=== PATIENT | female | born 1960 | race Caucasian/White ===

== ENCOUNTER → 2017-10-30 | Outpatient (CLI) | payer MEDICARE, OTHER ==
--- NOTE | 2017-10-30 13:32 | MM ---
Reason for exam: screening (asymptomatic). Baseline mammogram. History: Patient is postmenopausal and had first child at age 31. Physical Findings: Nurse did not find any significant physical abnormalities on exam. MG 3D Screening Mammo W/Cad Bilateral CC and MLO view(s) were taken. The breast tissue is heterogeneously dense. This may lower the sensitivity of mammography. Finding: There are indeterminate grouped/clustered calcifications in the middle, central position of the right breast. These results were verbally communicated with the patient and result sheet given to the patient on 10/30/17. ASSESSMENT: Incomplete: need additional imaging evaluation, BI-RAD 0 RECOMMENDATION: Special view mammogram of the right breast. If lesion persists on supplemental views, image directed ultrasound is recommended. [facility] will attempt to contact patient to return for supplemental views and ultrasound if indicated.
--- NOTE | 2017-10-30 13:34 | MM ---
Reason for exam: additional evaluation requested from abnormal screening. History: Patient is postmenopausal and had first child at age 31. Physical Findings: Breast exam preformed at baseline screening. MG 3D Work Up W/Cad RT CC with magnification, ML with magnification, and ML view(s) were taken of the right breast. Finding: There are intermediate concern, suspicious grouped/clustered calcifications in the slight upper outer quadrant, middle position of the right breast. These results were verbally communicated with the patient and result sheet given to the patient on 10/30/17. ASSESSMENT: Suspicious, BI-RAD 4 RECOMMENDATION: Surgical consultation and stereotactic core biopsy of the right breast. (if medically possible otherwise consider needle localization with surgical excision) Called Dr. Mariano with mammographic findings and has scheduled an appointment for the patient for 11/11/17 at 9:[address] Putnam. PRELIMINARY REPORT CALLED AND FAXED TO DR. PUTNAM ON 10/30/17.
== END | disposition home or self-care (01) ==
LOC: RADMAMWWP 10:19
PROVIDERS: ATTEND General Practice
DX: Z12.31 Encounter for screening mammogram for malignant neoplasm of breast (principal); R92.8 Other abnormal and inconclusive findings on diagnostic imaging of breast; G43.909 Migraine, unspecified, not intractable, without status migrainosus; J44.9 Chronic obstructive pulmonary disease, unspecified; F41.9 Anxiety disorder, unspecified; K59.00 Constipation, unspecified; Z00.00 Encounter for general adult medical examination without abnormal findings; Z13.89 Encounter for screening for other disorder; Z12.11 Encounter for screening for malignant neoplasm of colon
CPT/HCPCS: 77067; 77065; 77063; G0279

== ENCOUNTER → 2017-12-22 | Outpatient (CLI) | payer MEDICARE, OTHER ==
--- NOTE | 2017-12-22 11:19 | MR ---
EXAMINATION TYPE: MR brain wo con DATE OF EXAM: 12/22/2017 COMPARISON: NONE HISTORY: Migraines CONTRAST: Performed utilizing 0 mL intravenous Gadavist gadolinium contrast. TECHNIQUE: Multiplanar, multiecho imaging on a 3.0 Alicja magnet is performed through the brain. Stud y is performed within 24 hours of arrival to the hospital. The craniovertebral junction is normal. The pituitary is normal. Diffusion-weighted imaging is performed. No abnormal hyperintensity is present to suggest an acute i ntracranial infarct or acute ischemic change. Signal through the brain is normal. No suspicious changes typically associated with migraine headache s is identified Ventricles and sulci are appropriate for the patient age. Small bilateral air-fluid levels are present within the maxillary sinuses. Correlate for acute sinusi tis. IMPRESSIONS: 1. No acute intracranial process. 2. Bilateral maxillary sinusitis
== END | disposition home or self-care (01) ==
LOC: RADMRIMAIN 09:19
PROVIDERS: ATTEND Psychiatry & Neurology Neurology
DX: G43.709 Chronic migraine without aura, not intractable, without status migrainosus (principal)
CPT/HCPCS: 70551

== ENCOUNTER → 2017-12-26 | Day surgery (SDC) | payer MEDICARE, OTHER ==
[2017-12-19 15:25] VITALS: BMI 24.5
[~2017-12-26] MED LIST: DEXAMETHASONE SOD PHOSPHATE 10 MG/ML 1 ML VIAL IV ONE; HEPARIN SODIUM,PORCINE 5,000 UNIT/ML 1 ML VIAL SQ ONE; LACTATED RINGERS 1,000 ML IV SCH; MIDAZOLAM 2 MG/2 ML VIAL IV PRN; ONDANSETRON 4 MG/2 ML VIAL IVP ONE; Pre Op ABX Message 1 EACH MISC MISCELLANE ONE; SCOPOLAMINE 1.5MG/72HR PATCH TRANSDERM ONE; fentaNYL (PF) 50 MCG/ML 2 ML AMP IV PRN
== END ==
LOC: OR 06:44
PROVIDERS: ATTEND Surgery
DX: R92.8 Other abnormal and inconclusive findings on diagnostic imaging of breast (principal); Z53.9 Procedure and treatment not carried out, unspecified reason

== ENCOUNTER 2018-03-18 06:18 | Day surgery (SDC) | payer MEDICARE, OTHER ==
[2018-03-06 15:45] VITALS: BMI 23.2
--- NOTE | 2018-03-17 17:03 | P.GSHP ---
History of Present Illness H&P Date: 03/17/18 Chief Complaint: Abnormal right mammogram Patient on our service. She was previously scheduled for right wire localization biopsy in December. Apparently she came to the hospital that day after eating food for breakfast and her surgery was canceled. The patient has a legal guardian as she is learning disabled. She had an area of suspicious calcifications right breast recently. She is unable to have a stereotactic core biopsy because of positioning issues. She is being scheduled for wire localization biopsy to evaluate for possible malignancy. No new changes since recent H&P in December. Past Medical History Past Medical History: Blood Disorder, COPD, Fibromyalgia, GERD/Reflux, Musculoskeletal Disorder, Syncope Additional Past Medical History / Comment(s): HX Anemia. FX ILIAC WING; RT SHOULDER. CHRONIC DELUSIONAL DISORDER /ANXIETY, GETS MONTHLY INJECTION RX AT [facility]. CHRONIC PAIN SYNDROME, DUODENAL/AND SMALL GASTRIC ULCERS, CHRONIC CONSTIPATION. HX ETOH ABUSE. MIGRAINES. CURRENT ABN MAMMOGRAM RT BREAST. History of Any Multi-Drug Resistant Organisms: None Reported Past Surgical History: Bowel Resection, Orthopedic Surgery Additional Past Surgical History / Comment(s): Bowel surgry, EGD, LT OOPHERECTOMY PER 2006 HX, RT SHOULDER SX, COLONOSCOPY Past Anesthesia/Blood Transfusion Reactions: No Reported Reaction Additional Past Anesthesia/Blood Transfusion Reaction / Comment(s): Anesthesia - pt states when she had abdominal surgery she was paralyzed from the anesthesia. was not able to walk for a month or 2 per pt. -UNCONFIRMED BY CURRENT CAREGIVER Smoking Status: Current every day smoker - Past Family History Father Family Medical History: Myocardial Infarction ([place]) Mother History Unknown: Yes Family Medical History: Cancer Additional Family Medical History / Comment(s): mom of cancer that was from her head to her toe. Medications and Allergies Home Medications Medication Instructions Recorded Confirmed Type Thiamine [Vitamin B-1] 100 mg PO QAM 11/30/15 03/06/18 History Folic Acid 1 mg PO QAM 01/08/16 03/06/18 History Acetaminophen Tab [Tylenol Tab] 500 mg PO TID 12/19/17 03/06/18 History Albuterol Inhaler [Ventolin Hfa 1 - 2 puff INHALATION QID PRN 12/19/17 03/06/18 History Inhaler] Aspirin [Children's Aspirin] 81 mg PO DAILY 12/19/17 03/06/18 History Butalbital/Aspirin/Caffeine 1 tab PO Q6HR 12/19/17 03/12/18 History [Fiorinal 50-325-40 MG] Docusate Sodium [Dok] 100 mg PO DAILY 12/19/17 03/06/18 History FLUoxetine HCL [FLUoxetine DR] 90 mg PO MO 12/19/17 03/06/18 History Ferrous Sulfate [Feosol] 325 mg PO DAILY 12/19/17 03/06/18 History Melatonin 5 mg PO HS 12/19/17 03/06/18 History Mirtazapine [Remeron] 45 mg PO HS 12/19/17 03/06/18 History Omeprazole [PriLOSEC] 20 mg PO AC-BID 12/19/17 03/06/18 History Pregabalin [Lyrica] 50 mg PO TID 12/19/17 03/06/18 History traZODone HCL 50 mg PO HS 12/19/17 03/06/18 History Ergocalciferol [Vitamin D2] 50,000 unit PO Q14D 03/06/18 03/06/18 History Ibuprofen [Motrin Ib] 400 mg PO TID 03/06/18 03/11/18 History Magnesium Hydroxide [Milk of 10 ml PO DAILY PRN 03/06/18 03/06/18 History Magnesia] hydrOXYzine PAMOATE [Vistaril] 25 mg PO TID 03/06/18 03/06/18 History Butalb/Acetaminophen/Caffeine 1 cap PO Q6H 03/11/18 03/11/18 History [Fioricet 50-300-40 mg Capsule] Allergies Allergy/AdvReac Type Severity Reaction Status Date / Time bacitracin Allergy Unknown Verified 03/06/18 14:51 [From Neosporin ([id number])] bacitracin zinc Allergy Unknown Verified 03/06/18 14:51 [From Neosporin ([id number])] neomycin sulfate Allergy Unknown Verified 03/06/18 14:51 [From Neosporin ([id number])] petrolatum,white Allergy Unknown Verified 03/06/18 15:08 [From Vaseline] polymyxin B Allergy Unknown Verified 03/06/18 14:51 [From Neosporin ([id number])] Surgical - Exam Physical exam: General: Well-developed, well-nourished HEENT: Normocephalic, sclerae nonicteric Right breast: No masses, no adenopathy Left breast: No masses, no adenopathy Abdomen: Nontender, nondistended Extremities: No edema Neuro: Alert and oriented Assessment and Plan (1) Abnormal mammogram Narrative/Plan: Will proceed with right breast wire localization biopsy tomorrow. Risks of bleeding, infection, potential need for additional surgery were reviewed. They understand and wish to proceed. Status: Acute Code(s): R92.8 - OTH ABN AND INCONCLUSIVE FINDINGS ON DX IMAGING OF BREAST SNOMED Code(s): 222092537
[~2018-03-18 06:18] MED LIST changes: +HYDROmorphone 0.5 MG/0.5 ML SYRINGE IVP PRN; -LACTATED RINGERS 1,000 ML IV SCH; -SCOPOLAMINE 1.5MG/72HR PATCH TRANSDERM ONE; -fentaNYL (PF) 50 MCG/ML 2 ML AMP IV PRN
[2018-03-18] MEDS: LACTATED RINGERS 1,000 ML IV SCH ×2 (07:02→08:55)
[2018-03-18] MEDS ORDERED: ALPRAZolam 0.5 MG TAB PO ONE (07:14)
[2018-03-18] MEDS ORDERED: LIDOCAINE 1% INJ 10MG/ML (20 ML MDV) SQ ONE (07:46)
[2018-03-18] MEDS ORDERED: SODIUM BICARB 4% 5 ML VIAL (0.48 MEQ/ML) MISCELLANE ONE (07:46)
[2018-03-18] MEDS ORDERED: ePHEDrine SULFATE/0.9% NACL/PF 50 MG/5 ML SYRINGE IV ONE (08:55)
[2018-03-18] MEDS ORDERED: HYDROmorphone (PF) 1 MG/ML ONE (08:55)
[2018-03-18] MEDS ORDERED: MIDAZOLAM 2 MG/2 ML VIAL ONE (08:55)
[2018-03-18] MEDS ORDERED: fentaNYL (PF) 50 MCG/ML 2 ML AMP ONE (08:55)
[2018-03-18] MEDS ORDERED: SUCCINYLCHOLINE CHLORIDE 100 MG/5 ML SYR IV ONE (08:55)
[2018-03-18] MEDS ORDERED: LIDOCAINE 1% INJ 10MG/ML (20 ML MDV) ONE (08:55)
[2018-03-18] MEDS ORDERED: PROPOFOL 10 MG/ML 20 ML VIAL IV ONE (08:55)
[2018-03-18] MEDS ORDERED: BUPIVACAIN-EPI 0.5%-1:200,000 30 ML VIAL SQ ONE (09:28)
[2018-03-18] MEDS ORDERED: HYDROcodone/APAP 5-325MG 1 EACH TAB PO PRN (09:35)
[2018-03-18] MEDS ORDERED: NALOXONE 0.4 MG/ML 1 ML VIAL IV PRN (09:35)
--- NOTE | 2018-03-18 09:37 | P.OP ---
Date of Procedure: 03/18/18 Procedure(s) Performed: PREOPERATIVE DIAGNOSIS: Abnormal right mammogram POSTOPERATIVE DIAGNOSIS: Same PROCEDURE: Right Breast wire localization biopsy SURGEON: [place] EBL: Minimal ANESTHESIA: General COMPLICATIONS: None OPERATIVE PROCEDURE: Patient was placed on the operating room table in the supine position. The breast was prepped and draped in usual sterile fashion. A curvilinear incision was made adjacent to the wire entrance site. I followed the wire down into the breast tissue. An adequate biopsy took place around the mid aspect of the wire. The specimen was sent to radiology for specimen x-ray. The subcutaneous tissues were closed using 3-0 Vicryl sutures. The skin was closed using a running 4-0 Monocryl stitch. Dermabond was then applied. DISPOSITION: Stable to recovery room
--- NOTE | 2018-03-18 09:51 | MM ---
EXAMINATION TYPE: MG pre op needle loc RT, MG surgical specimen RT DATE OF EXAM: 03/18/2018 COMPARISON: Prior mammogram October 30, 2017 and older studies CLINICAL HISTORY: Abnormal screening mammogram TECHNIQUE: Needle localization with wire placement and surgical excision of area of concern in the right breast. FINDINGS: The procedure of needle localization with wire placement and than surgical excision was explained to the patient. Benefits, alternatives, and risks were discussed. An informed consent was then obtained. Stereotactic guided core biopsy could not be performed due to recent shoulder surgery The shortest pathway for procedure was chosen. Shortest pathway was lateral approach. The overlying skin was prepped and draped in usual sterile fashion. Lidocaine buffered with bicarbonate was used as anesthetic into the skin and subcutaneous tissue up to the level of area of concern. A 7 cm needle was used. It was placed via a lateral approach under mammographic guidance. Subsequent 90 degrees mammogram show the needle to be in satisfactory position relative to the targeted area. At this point, wire was placed and the needle was withdrawn. The wire was fixed to patient's skin. Images were marked for surgeon. The patient tolerated the procedure well without any immediate complication. The patient was kept in the radiology department for short stay after the procedure and then taken to surgery for surgical excision. Targeted calcifications and wire are identified in specimen mammogram. The patient was kept in hospital for short stay after the procedure and then discharged home in stable condition. IMPRESSION: Successful, uncomplicated needle localization with wire placement and surgical excision of suspicious group of calcifications in the right breast , full pathology results to follow. Intermediate index of suspicion noted at time of procedure. Pathology Results: Benign RIGHT BREAST, STEREOTACTIC BREAST BIOPSY: Fibrocystic changes with fibroadenomatous and metaplastic changes. Intraductal mineralizations are noted in blocks A3 and A5. Appropriately controlled immunohistochemical studies for Cytokeratin 5/6, E- Cadherin, and Calponin are negative for lobular neoplasia. Recommendation Follow up mammogram of the right breast in 6 months. LEO
[2018-03-18 09:59] VITALS: TEMP 97.1
[2018-03-18 10:19] VITALS: RESP 16
[2018-03-18 11:01] VITALS: BP 143/83; PULSE 64
== END 2018-03-18 11:28 | disposition home or self-care (01) ==
LOC: OR 06:18
PROVIDERS: ATTEND Surgery
DX: D24.1 Benign neoplasm of right breast (principal); R92.1 Mammographic calcification found on diagnostic imaging of breast; J44.9 Chronic obstructive pulmonary disease, unspecified; M79.7 Fibromyalgia; K21.9 Gastro-esophageal reflux disease without esophagitis; G89.4 Chronic pain syndrome; F22 Delusional disorders; F41.9 Anxiety disorder, unspecified; Z79.82 Long term (current) use of aspirin; Z79.1 Long term (current) use of non-steroidal anti-inflammatories (NSAID); Z79.899 Other long term (current) drug therapy; Z88.1 Allergy status to other antibiotic agents; F17.200 Nicotine dependence, unspecified, uncomplicated
CPT/HCPCS: 19125; 88342; 88307; 88341; 76098; 19281; J2250; J1644; J1100; J2405; J2001; J3010; J1170; J0330; J2704

== ENCOUNTER → 2018-09-21 | Outpatient (CLI) | payer MEDICARE, OTHER ==
--- NOTE | 2018-10-01 10:22 | MM ---
Reason for exam: follow-up at short interval from prior study. Last mammogram was performed 11 months ago. History: Patient is postmenopausal and had first child at age 31. Benign MG pre op needle loc RT of the right breast, March 18, 2018. Physical Findings: Nurse did not find any significant physical abnormalities on exam. MG 3D Diag Mammo W/Cad RT CC and MLO view(s) were taken of the right breast. Prior study comparison: October 30, 2017, right breast MG 3d work up w/cad RT. October 30, 2017, bilateral MG 3d screening mammo w/cad. There are scattered fibroglandular densities. No residual calcifications or other discrete abnormalities seen. These results were verbally communicated with the patient and result sheet given to the patient on 09/21/18. ASSESSMENT: Probably benign, BI-RAD 3 RECOMMENDATION: Follow-up diagnostic mammogram of both breasts in 1 month. Back on schedule for October 2018.
== END | disposition home or self-care (01) ==
LOC: RADMAMWWP 09:34
PROVIDERS: ATTEND Surgery
DX: R92.8 Other abnormal and inconclusive findings on diagnostic imaging of breast (principal)
CPT/HCPCS: 77065; G0279; 77061

== ENCOUNTER → 2018-11-30 | Outpatient (CLI) | payer MEDICARE, OTHER ==
--- NOTE | 2018-11-30 09:08 | MM ---
Reason for exam: follow-up at short interval from prior study. Last mammogram was performed 2 months ago. History: Patient is postmenopausal and had first child at age 31. Benign MG pre op needle loc RT of the right breast, March 18, 2018. Physical Findings: Nurse did not find any significant physical abnormalities on exam. MG Diagnostic Mammo w CAD [place] Bilateral CC and MLO view(s) were taken. Prior study comparison: September 21, 2018, right breast MG 3d diag mammo w/cad RT. October 30, 2017, right breast MG 3d work up w/cad RT. There is no discrete abnormality. Previous right calcifications have been excised in the interval. No significant new findings when compared with previous films. These results were verbally communicated with the patient and result sheet given to the patient on 11/30/18. ASSESSMENT: Negative, BI-RAD 1 RECOMMENDATION: Routine screening mammogram of both breasts in 1 year.
== END ==
LOC: RADMAMWWP 07:59
PROVIDERS: ATTEND General Practice
DX: R92.8 Other abnormal and inconclusive findings on diagnostic imaging of breast (principal)
CPT/HCPCS: 77066